=== PATIENT | male | born 1980 | race Two or more races ===

== ENCOUNTER → 2024-05-12 | Emergency (ER) | payer OTHER ==
[~2024-05-12] VITALS: Ht 190.5 cm; Wt 90.7 kg
[~2024-05-12] MED LIST: KETOROLAC TROMETHAMINE 30 MG VIAL IM ONE; KETOROLAC TROMETHAMINE 30 MG VIAL ONE; ORPHENADRINE CITRATE 30 MG/ML AMPUL IM ONE; ORPHENADRINE CITRATE 30 MG/ML AMPUL ONE; TETANUS & DIPHTHERIA TOX,ADULT 0.5 ML VIAL IM ONE; TETANUS DIPHTHERIA TOX. ADSOR 5 ML VIAL IM ONE
== END | disposition home or self-care (01) ==
LOC: ER 07:45
DX: S70.372A Other superficial bite of left thigh, initial encounter (principal); W54.0XXA Bitten by dog, initial encounter; Y93.89 Activity, other specified; Y92.89 Other specified places as the place of occurrence of the external cause; Y99.9 Unspecified external cause status; G89.29 Other chronic pain